=== PATIENT | male | born 1990 | race Caucasian/White ===

== ENCOUNTER 2021-03-20 23:16 | Emergency (ER) | payer SELFPAY ==
[~2021-03-20] VITALS: Ht 175.3 cm; Wt 83.9 kg
[2021-03-20 23:33] VITALS: BP 118/64
[2021-03-21] MEDS ORDERED: IBUPROFEN 400MG TABLET PO ONE (01:15)
[2021-03-21] MEDS ORDERED: ACETAMINOPHEN 325MG TABLET PO ONE (01:15)
[2021-03-21] MEDS ORDERED: ACET-2708 MT (01:19)
[2021-03-21] MEDS ORDERED: NAPR-1176 MT (01:19)
[2021-03-21] MEDS ORDERED: AMOX-424 MT (01:19)
[2021-03-21] MEDS ORDERED: CHLO473M2 MT (01:22)
== END 2021-03-21 02:04 | disposition home or self-care (01) ==
LOC: ER 23:16
DX: K08.89 Other specified disorders of teeth and supporting structures (principal); Z79.899 Other long term (current) drug therapy
CPT/HCPCS: 99283